=== PATIENT | female | born 1955 | race Caucasian/White ===

== ENCOUNTER → 2017-04-02 | Outpatient (CLI) | payer OTHER ==
[~2017-04-02] MED LIST: MULT-506 PO
[2017-04-16 18:05] LABS: HPV 16 RNA NOT DETECTED (NOT DETECTED); HPV 18 45 RNA NOT DETECTED (NOT DETECTED)
== END | disposition home or self-care (01) ==
LOC: C.PAPS 10:19
PROVIDERS: ATTEND Physician Assistant
DX: Z01.419 Encounter for gynecological examination (general) (routine) without abnormal findings (principal)

== ENCOUNTER → 2018-03-09 | Outpatient (CLI) | payer OTHER ==
--- NOTE | 2018-03-10 15:05 | MAMMOGRAPHY REPORT ---
BILATERAL DIGITAL SCREENING MAMMOGRAM TOMOSYNTHESIS WITH CAD: 03/09/2018 CLINICAL HISTORY: Routine screening. Patient has no complaints. TECHNIQUE: Breast tomosynthesis in addition to standard 2D mammography was performed. Current study was also evaluated with a Computer Aided Detection (CAD) system. COMPARISON: Comparison is made to exams dated: 09/18/2016 mammogram, 03/24/2013 mammogram - [facility], 07/14/2009, and 04/23/2006 mammogram. BREAST COMPOSITION: There are scattered areas of fibroglandular density in both breasts. FINDINGS: The parenchymal pattern is unchanged. No developing mass, architectural distortion or clus ter of suspicious microcalcifications is seen in either breast. IMPRESSION: ACR BI-RADS CATEGORY 2: BENIGN There is no mammographic evidence of malignancy. A 1 year screening mammogram is recommended. The pa tient will receive written notification of the results. Approximately 10% of breast cancers are not detected with mammography. A negative mammographic report should not delay biopsy if a clinically suggestive mass is present. Maryanne Herrmann M.D. ay/:03/09/2018 17:02:38 Auto Service Advisor: Kera RICE(Víctor)(Violet)(BD), [facility] letter sent: Normal 1/2 BI-RADS Code: ACR BI-RADS Category 2: Benign
== END | disposition home or self-care (01) ==
LOC: C.MAMM 14:35
PROVIDERS: ATTEND Internal Medicine
DX: Z12.31 Encounter for screening mammogram for malignant neoplasm of breast (principal)

== ENCOUNTER → 2018-05-19 | Outpatient (CLI) | payer OTHER ==
--- NOTE | 2018-05-19 13:15 | DIAGNOSTIC IMAGING REPORT ---
L-SPINE MIN 4 VIEWS ROUTINE HISTORY: Pain M54.9 Back painIncluding flex/extend view COMPARISON: None. FINDINGS: There is no fracture. No evidence for positional subluxation. Considerable degenerative disc change L5-S1 with mild degenerative changes L4-L5. The posterior elements appear intact. IMPRESSION: 1. Considerable degenerative disc change L5-S1. 2. No evidence for subluxation with the patient in flexion or extension. The above report was generated using voice recognition software. It may contain grammatical, syntax or spelling errors. Electronically signed by: Rashard Jean M.D. 05/19/2018 1:13 PM Dictated Date/Time: 05/19/2018 1:12 PM
== END | disposition home or self-care (01) ==
LOC: C.RAD1850 12:43
PROVIDERS: ATTEND Internal Medicine
DX: M54.9 Dorsalgia, unspecified (principal)

== ENCOUNTER 2024-02-02 13:59 | Observation (INO) ==
[2024-02-02 14:43] LABS: Basophils # (auto) 0.02 K/uL (0.00-0.20); Basophils % (auto) 0.3 %; Eosinophils # (auto) 0.04 K/uL (0.00-0.50); Eosinophils % (auto) 0.6 %; Hematocrit (blood only) 45.7 % (37.0-47.0); Hemoglobin 15.5 g/dl (12.0-16.0); Immature Granulocytes # (auto) 0.03 K/uL (0.01-0.20); Immature Granulocytes % (auto) 0.5 %; Lymphocytes # (auto) 2.17 K/uL (1.20-3.40); Lymphocytes % (auto) 34.6 %; Mean Corpuscular Hemoglobin 29.1 pg (25.0-34.0); Mean Corpuscular Hgb Conc 33.9 g/dL (32.0-36.0); Mean Corpuscular Volume 85.7 fL (80.0-100.0); Mean Platelet Volume 9.6 fL (9.4-12.4); Monocytes # (auto) 0.44 K/uL (0.11-0.59); Neutrophils # (auto) 3.58 K/uL (1.40-6.50); Platelet Count 224 K/uL (130-400); RDW Coefficient of Variation 12.7 % (11.5-14.5); RDW Standard Deviation 39.8 fL (36.4-46.3); Red Blood Count 5.33 M/uL (4.20-5.40); White Blood Count 6.28 K/ul (4.8-10.8)
--- NOTE | 2024-02-02 14:48 | XRay Report ---
XR chest 1V not portable CLINICAL HISTORY: Chest pain, nonspecific TECHNIQUE: Single frontal radiograph of the chest was obtained. Comparison: Comparison is made to chest radiograph 08/24/2013 FINDINGS: No lines and tubes are seen. The cardiomediastinal silhouette is normal. The lungs are clear. No evid ence of pleural effusion or pneumothorax. IMPRESSION: No acute chest disease. ACT 112: Negative or not required by law. Electronically signed by: Manan Lancaster M.D. 02/02/2024 2:46 PM
[2024-02-02 15:04] LABS: Albumin Globulin Ratio 1.8 (0.9-2); Albumin Level 4.7 gm/dl (3.4-5.0); BUN Creatinine Ratio 16.5 (10-20); Bilirubin,Total 0.5 mg/dl (0.2-1.0); Calcium 9.7 mg/dl (8.6-10.3); Creatinine Clr Calc Pharmacy 63.2 ml/min; Est GFR (African American) 88.5 ml/min; Est GFR (Non-African American) 76.4 ml/min; Globulin 2.6 gm/dl (2.5-4.0); Potassium 3.5 mmol/L (3.5-5.1); Total Protein 7.3 gm/dl (6.0-8.3)
[2024-02-02 15:10] LABS: Partial Thromboplastin Time 27 Seconds (21-31); Prothrombin Time 11.4 Seconds (9.0-12.0)
--- NOTE | 2024-02-02 15:43 | Emergency Department Note ---
Impression & Plan Atypical chest pain ED Provider Note NAME: SPENSER BLUM AGE: 68 SEX: F : 1955 ARRIVES VIA: Walk-In INFORMANT: Patient, ED PROVIDER(S): Terrell Valladares MD CHIEF COMPLAINT: Too much vitamin A, dry skin, dehydration, chest pain MEDICAL DECISION MAKING: Patient presents and is very concerned about her vitamin a but reason for presenting to the emergency department was for chest pain. IV was established and blood work was obtained. Patient's EKG may show subtle changes in the lateral inferior leads. Patient was ordered for full dose aspirin. Blood work shows a normal white count H&H and platelet count. The patient's kidney function is unremarkable. Patient's troponin is not elevated. Urinalysis without evidence of obvious blood or infection. Patient's chest x-ray is negative. Patient was ordered IV fluids. Given the patient's exertional chest pain that was brief in duration with EKG changes I did suggest that the patient be admitted. Patient is comfortable with current plan of care. I did speak with the on-call hospitalist Dr. Huynh and the patient was admitted to the medicine service. Discussion w/ other healthcare providers: Dr. Huynh inpatient medicine service Prior /Outside records reviewed: None Differential diagnosis: Cardiac ischemia, aortic dissection, pulmonary embolism, pneumothorax, pneumonia, pericarditis, myocarditis, GERD, cholecystitis, pancreatitis, musculoskeletal, as well as other pathologies were considered. Diagnostics, as interpreted by me: ECG: Normal sinus rhythm, rate of 69, normal intervals, normal axis slight depressions noted inferiorly and laterally. He does appear changed from comparison EKG July 16, 2022. Cardiac monitoring: An order was placed for continuous cardiac monitoring. The monitor shows a rate of 75 with sinus rhythm. Patient was placed on pulse oximetry Medical decision rules: Heart score Imaging studies: I informally interpreted the patient's chest x-ray does not show obvious pneumonia or pneumothorax with formal report to follow. HPI: Patient presents due to concern for vitamin a overconsumption as well as chest pain. The patient does mention that she wanted to avoid any difficulties with her vision and thus was eating a lot of supplements as well as foods rich in vitamin A. The patient believes that her skin is getting dry and she feels like she has a "reptile." Patient did present to the emergency department today because of this but in addition to the fact that she developed chest pain today. The patient states that she was pushing her push mower and developed centralized chest pressure. This lasted approximate 5 minutes and resolved with stopping. Patient denies any prior history of heart or lung disease. No leg swelling or calf pain. Patient states that she felt like her blood pressure might be elevated. Patient was noted to be elevated when she presented. The patient denies any increase in salt or processed foods in the diet. Patient denies any alcohol tobacco or drug use. No family history of heart attack or stroke in parents or siblings before the age of 65. PAST MEDICAL HISTORY: See Below PAST SURGICAL HISTORY: See Below SOCIAL HISTORY: See Below HOME MEDICATIONS: See Below ALLERGIES: See Below VITALS: See Below PHYSICAL EXAMINATION: GENERAL: NAD, non-toxic. Wearing glasses. EYE EXAM: Normal conjunctiva. PERRL, no anisocoria and EOM's grossly intact w/o pain. OROPHARYNX: Moist mucus membranes, grossly normal dentition. NECK: Trachea midline, no stridor. LUNGS: Clear to auscultation. Normal chest wall mechanics. HEART: NSR, no MRG. ABDOMEN: Abdomen soft, non-tender, no masses, no rebound or guarding. BACK: No CVA TTP. SKIN: No rashes and no bruising. UPPER EXTREMITIES: Upper extremities are grossly normal. LOWER EXTREMITIES: Grossly normal, no edema. Negative Homans' sign bilaterally. NEURO EXAM: A&O x3, cranial nerves II-XII grossly intact, normal speech, moves all 4 extremities. Past Med/Surg History Medical History HSIL (high grade squamous intraepithelial lesion) on Pap smear of cervix resolved Disc degeneration, lumbosacral History of diverticulitis of colon Osteopenia Surgical History History of cataract surgery bilat S/P LEEP Hx of colonoscopy History of tubal ligation History of rhinoplasty History of wisdom tooth extraction S/P tonsillectomy Family History Mother Myocardial infarction Breast cancer, Onset Age: 55 still alive in her 90s Dyslipidemia Skin cancer Grandmother (Paternal) Diabetes Brother Hypothyroidism Prostate cancer Father Hypothyroidism Pacemaker Prostate cancer Daughter Hypothyroidism Denies family history of Ovarian cancer Colorectal cancer Social History Smoking Status: Never smoker Age Started Using Tobacco: 17; Age Quit Using Tobacco: 53; Second Hand Exposure: No; Do You Dip or Chew Tobacco: No; Hx Alcohol Use: Yes Alcohol type: wine Hx Substance Use: Yes Prescribed Medications: Marijuana Non-Prescribed Medications: Marijuana Substance Use Type Other:: medical card Preferred Language: Mongolian Communication Ability: Effective Visual Impairment: Partially Limited Hearing Ability: Normal General Ii Farmworker Required: No Beliefs That Will Affect Care: None marital status: Current Living Situation: Spouse Current Living Situation Comment: daughter current occupational status: employed current occupation: self employeed How many Children do You have: 1 How many Children do You have Comment: girl Feels Safe at Home: Yes Childhood Exposure to Second-Hand Smoke: No Diet: regular during the past year weight has: remained stable Dental Care, Regularly: Yes Physical Activity Frequency: 5-6 Times per Week Seatbelt Use: always Sunscreen Use: No Assistive Devices: Glasses Allergies Allergies Allergy/AdvReac Type Severity Reaction Status Date / Time Penicillins Allergy Severe Throat Verified 02/02/24 18:04 swelling Home Meds Home Medications Medication Instructions Recorded Confirmed multivitamin 1 tab PO QAM 02/10/20 02/02/24 Medical Marijuana 1 cap PO HS PRN Sleep 08/09/22 02/02/24 Mushrooms 1 dose PO QAM 08/09/22 02/02/24 cholecalciferol (vitamin D3) 100 100 mcg PO QAM 08/09/22 02/02/24 mcg (4,000 unit) capsule vitamin B complex 1 tab PO QAM 08/09/22 02/02/24 vitamin E 200 unit tablet 45 mg PO DAILY 08/09/22 02/02/24 enzymes, proteolytic-rutin 50 mg 1 cap PO DAILY 07/07/23 02/02/24 capsule,delayed release (ProteoXyme) omega 2-fbt-bxb-fish oil 1,000 mg 1 cap PO DAILY 02/02/24 02/02/24 (120 mg-180 mg) capsule (Fish Oil) valacyclovir 1 gram tablet 1,000 mg PO Q12H PRN Outbreak 02/02/24 02/02/24 Results & Data (ED) Vital Signs Vital Signs - 24 hr 02/02/24 14:06 02/02/24 17:06 02/02/24 17:06 Temperature 36.6 C Temperature Source Temporal Artery Scan Pulse Rate 90 Pulse Rate [Apical] 66 Pulse Rhythm [Apical] Regular Pulse Strength [Apical] Normal Respiratory Rate 20 20 Respiratory Effort / Characteristics Non-Labored Non-Labored Spontaneous Respiratory Depth Normal Normal Respiratory Pattern Regular Blood Pressure 201/92 H Blood Pressure [Left Arm] 177/104 H Blood Pressure Mean 128 Blood Pressure Mean [Left Arm] 128 Pulse Oximetry 98 98 98 Oxygen Delivery Method Room Air Room Air Sepsis Recent Fever Within 48 Hours No Sepsis New/Unexplained Change in Mental Status No Sepsis Action Taken by Nursing No Action Required 02/02/24 17:39 Temperature Temperature Source Pulse Rate 62 Pulse Rate [Apical] Pulse Rhythm [Apical] Pulse Strength [Apical] Respiratory Rate Respiratory Effort / Characteristics Respiratory Depth Respiratory Pattern Blood Pressure Blood Pressure [Left Arm] Blood Pressure Mean Blood Pressure Mean [Left Arm] Pulse Oximetry Oxygen Delivery Method Sepsis Recent Fever Within 48 Hours Sepsis New/Unexplained Change in Mental Status Sepsis Action Taken by Half-Way Medications Current Medication List: was personally reviewed by ky Laboratory Data Attestation: I reviewed the patient's lab results. 02/02/24 14:10 02/02/24 14:10 Lab Results 02/02/24 02/02/24 Range/Units 14:09 14:10 WBC 6.28 (4.8-10.8) K/ul RBC 5.33 (4.20-5.40) M/uL Hgb 15.5 (12.0-16.0) g/dl Hct 45.7 (37.0-47.0) % MCV 85.7 (80.0-100.0) fL MCH 29.1 (25.0-34.0) pg MCHC 33.9 (32.0-36.0) g/dL RDW Std Deviation 39.8 (36.4-46.3) fL RDW Coeff of Jacquie 12.7 (11.5-14.5) % Plt Count 224 (130-400) K/uL MPV 9.6 (9.4-12.4) fL Immature Gran % (Auto) 0.5 % Neut % (Auto) 57.0 % Lymph % (Auto) 34.6 % Brooke % (Auto) 7.0 % Eos % (Auto) 0.6 % Baso % (Auto) 0.3 % Neut # (Auto) 3.58 (1.40-6.50) K/uL Lymph # (Auto) 2.17 (1.20-3.40) K/uL Brooke # (Auto) 0.44 (0.11-0.59) K/uL Eos # (Auto) 0.04 (0.00-0.50) K/uL Baso # (Auto) 0.02 (0.00-0.20) K/uL Immature Gran # (Auto) 0.03 (0.01-0.20) K/uL PT 11.4 (9.0-12.0) Seconds INR 1.0 (0.9-1.1) APTT 27 (21-31) Seconds PTT Ratio 1.0 Sodium 137 (136-145) mmol/L Potassium 3.5 (3.5-5.1) mmol/L Chloride 103 (98-107) mmol/L Carbon Dioxide 28 (21-32) mmol/L Anion Gap 6 (3-11) BUN 13 (6-23) mg/dl Creatinine 0.79 (0.6-1.2) mg/dl Est Cr Clr Drug Dosing 63.2 ml/min Est GFR ( Amer) 88.5 ml/min Est GFR (Non-Af Amer) 76.4 ml/min BUN/Creatinine Ratio 16.5 (10-20) Glucose 101 H (70-99(Fasting)) mg/dl Calcium 9.7 (8.6-10.3) mg/dl Total Bilirubin 0.5 (0.2-1.0) mg/dl AST 22 (13-39) U/L ALT 23 (7-52) U/L Alkaline Phosphatase 62 (34-104) U/L Troponin I High Sens 4.0 (0-14) pg/ml Total Protein 7.3 (6.0-8.3) gm/dl Albumin 4.7 (3.4-5.0) gm/dl Globulin 2.6 (2.5-4.0) gm/dl Albumin/Globulin Ratio 1.8 (0.9-2) Urine Color Yellow Urine Appearance Clear (Clear) Urine pH 6.5 (4.5-7.5) Ur Specific Allen 1.003 (1.000-1.030) Urine Protein Negative (Negative) Urine Glucose (UA) Negative (Negative) Urine Ketones Negative (Negative) Urine Blood Negative (Negative) Urine Nitrite Negative (Negative) Urine Bilirubin Negative (Negative) Urine Urobilinogen Negative (Negative) Ur Leukocyte Esterase Trace H (Negative) Urine WBC (Auto) 0-5 (0-5) /hpf Urine RBC (Auto) 0-2 (0-2) /hpf U Hyaline Cast (Auto) 0-2 (0-2) /lpf U Epithel Cells (Auto) 0-2 (0-2) /hpf Urine Bacteria (Auto) None Seen (None Seen) Administered Medications Discontinued Medications Aspirin (Aspirin Chew 324 Mg) 324 mg PO NOW STA Stop: 02/02/24 17:15 Last Admin: 02/02/24 17:21 Dose: 324 mg Documented By: GERMAN Sodium Chloride (Nss) 1,000 mls @ 999 mls/hr IV .Q1H1M ONE Stop: 02/02/24 18:14 Last Infusion: 02/02/24 18:31 Dose: Infused Documented By: Admin: 02/02/24 17:20 Dose: 999 mls/hr Documented By: GERMAN Imaging Data Radiologist's Impression: Chest X-Ray 02/02/24 14:09 XR chest 1V not portable CLINICAL HISTORY: Chest pain, nonspecific TECHNIQUE: Single frontal radiograph of the chest was obtained. Comparison: Comparison is made to chest radiograph 08/24/2013 FINDINGS: No lines and tubes are seen. The cardiomediastinal silhouette is normal. The lungs are clear. No evidence of pleural effusion or pneumothorax. IMPRESSION: No acute chest disease. ACT 112: Negative or not required by law. Electronically signed by: Manan Lancaster M.D. 02/02/2024 2:46 PM Discharge Plan Visit Data Chief Complaint: Cardiac Assessment Stated Complaint: SEVERE DRYNESS,HEADACHE,PRESSURE IN CHEST ED Provider: Terrlel Valladares Discharge Problem: Atypical chest pain Discharge Instructions Interventions: ED Discharge Assessment Last Done: 02/02/24 19:41
[2024-02-02] MEDS: SODIUM CHLORIDE 0.9% 1,000 ML IV ONE (17:20)
[2024-02-02] MEDS: ASPIRIN CHEW 324 MG PO STA (17:21)
[2024-02-02 17:34] LABS: Appearance Urine Clear (Clear); Bacteria Urine Automated None Seen (None Seen); Bilirubin Urine Negative (Negative); Blood Urine Negative (Negative); Cast Urine Automated 0-2 /lpf (0-2); Color Urine Yellow; Epithelial Cell Urine Auto 0-2 /hpf (0-2); Glucose Urine UA Negative (Negative); Ketones Urine Negative (Negative); Leukocyte Esterase Urine Trace (Negative); Nitrite Urine Negative (Negative); Protein Urine Negative (Negative); RBC Urine Automated 0-2 /hpf (0-2); Specific Gravity Urine 1.003 (1.000-1.030); Urobilinogen Urine Negative (Negative); WBC Urine Automated 0-5 /hpf (0-5); pH Urine 6.5 (4.5-7.5)
--- NOTE | 2024-02-02 18:31 | History & Physical Report ---
Date of Service February 02, 2024 Assessment & Plan (1) Chest pain, rule out acute myocardial infarction: Plan: Exertional chest pain and likely not long enough to cause troponins elevation with mild EKG changes and HTN therefore: Serial troponins overnight Stress echocardiogram - if normal suspect symptoms from high stress and anxiety NPO after midnight HTN likely due to stress/anxiety and would avoid acutely treating this unless consistently sBP > 200 (2) Vitamin A overdose: Plan: Her symptoms appear to be more anxiety related given she relates sudden onset of symptoms including dry skin to eating cheese/eggs/milk. Acute toxicity can really only occur with high doses of supplementation with symptoms of nausea, vomiting, vertigo and blurring of vision. Given she is taking vitamin A supplements I think it is reasonable to take a vitamin A level as high levels of vitamin A chronically can cause non-specific symptoms such as what she is describing although it is a send out test and she should follow up with her PCP for this. Plan VTE Prophylaxis - low risk Diet - heart healthy Disposition - observation to med/tele Admission and Anticipated Discharge Date Admission Date: February 02, 2024 History of Present Illness Chief Complaint: Chest pain Concern for vitamin A overdose Primary Care Provider: Atilio Philippe MD Ladan Alcala is a 68 year old female who presents to the ER with chest pain and concern for vitamin A overdose. Her chest pain occurred around 11:30am today while pushing the scaleman and lasted for 5 minutes, relieved with rest. Unable to give severity as it was more like a tightness. No radiation. No associated diaphoresis, shortness of breath, dizziness. Never had similar chest pains previously. This week she has felt multiple symptoms which she relates to taking too much vitamin A. She reports every time she has foods high in vitamin A and supplements her skin suddenly dries up and lacks skin turgor. She has stopped using skin cream as that has vitamin A in it. She is having chills at night. Slight headache. 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 Sukhdeep hands and feet intermittently. Yesterday she thought she saw one pupil was smaller than the other in a mirror. She feels better in the morning but worse throughout the day as she eats things with vitamin A in them. She was taking vitamin A supplements to help with her eyes but for the last week as she feels her symptoms are due to this she has tried to stop everything with vitamin A in it. She continues to feels she is very dehydrated in the ER. Allergies Allergy/AdvReac Type Severity Reaction Status Date / Time Penicillins Allergy Severe Throat Verified 02/02/24 18:04 swelling Home Medications Medication Instructions Recorded Confirmed Type multivitamin 1 tab PO QAM 02/10/20 02/02/24 History Medical Marijuana 1 cap PO HS PRN Sleep 08/09/22 02/02/24 History Mushrooms 1 dose PO QAM 08/09/22 02/02/24 History cholecalciferol (vitamin D3) 100 100 mcg PO QAM 08/09/22 02/02/24 History mcg (4,000 unit) capsule vitamin B complex 1 tab PO QAM 08/09/22 02/02/24 History vitamin E 200 unit tablet 45 mg PO DAILY 08/09/22 02/02/24 History enzymes, proteolytic-rutin 50 mg 1 cap PO DAILY 07/07/23 02/02/24 History capsule,delayed release (ProteoXyme) omega 4-atv-ivy-fish oil 1,000 mg 1 cap PO DAILY 02/02/24 02/02/24 History (120 mg-180 mg) capsule (Fish Oil) valacyclovir 1 gram tablet 1,000 mg PO Q12H PRN Outbreak 02/02/24 02/02/24 History Past Med/Surg History Medical History HSIL (high grade squamous intraepithelial lesion) on Pap smear of cervix resolved Disc degeneration, lumbosacral History of diverticulitis of colon Osteopenia Surgical History History of cataract surgery bilat S/P LEEP Hx of colonoscopy History of tubal ligation History of rhinoplasty History of wisdom tooth extraction S/P tonsillectomy Family History Mother Myocardial infarction Breast cancer, Onset Age: 55 still alive in her 90s Dyslipidemia Skin cancer Grandmother (Paternal) Diabetes Brother Hypothyroidism Prostate cancer Father Hypothyroidism Pacemaker Prostate cancer Daughter Hypothyroidism Denies family history of Ovarian cancer Colorectal cancer Social History Smoking Status: Never smoker Age Started Using Tobacco: 17; Age Quit Using Tobacco: 53; Second Hand Exposure: No; Do You Dip or Chew Tobacco: No; Hx Alcohol Use: No Hx Substance Use: Yes Prescribed Medications: Marijuana Non-Prescribed Medications: Marijuana Substance Use Type Other:: medical card Preferred Language: Turkmen Communication Ability: Effective Visual Impairment: Partially Limited Hearing Ability: Normal 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 Beliefs That Will Affect Care: Gnosticism Gnosticism Beliefs: no vaccines marital status: Current Living Situation: Family Current Living Situation Comment: daughter current occupational status: employed current occupation: self employeed How many Children do You have: 1 How many Children do You have Comment: girl Feels Safe at Home: Yes Safety Concerns: Feels Safe At This Time Childhood Exposure to Second-Hand Smoke: No Diet: regular during the past year weight has: remained stable Dental Care, Regularly: Yes Physical Activity Frequency: 5-6 Times per Week Seatbelt Use: always Sunscreen Use: No Assistive Devices: Glasses Review of Systems Review of Systems: All systems reviewed & are unremarkable except as noted in HPI & below Physical Exam Constitutional: WD/WN, vitals as above Eyes: PERRL, conjunctivae normal, anicteric sclerae ENMT: external ear and nose normal, oropharynx normal Respiratory: normal respiratory effort, lungs clear to auscultation Cardiovascular: RRR, no murmur, no edema Gastrointestinal (Abdomen): normal bowel sounds, soft, nontender, no hepatosplenomegaly Skin: no rashes, warm and dry normal turgor Neurologic: moves all extremities and awake; not confused Psychiatric: A+Ox3, euthymic affect Results & Data Results & Data Vital Signs (Past 12 Hours) Vital Signs Temp Pulse Pulse Resp BP BP Pulse Ox 02/02/24 17:39 62 02/02/24 17:06 66 20 177/104 H 98 02/02/24 17:06 98 02/02/24 14:06 36.6 C 90 20 201/92 H 98 O2 Del Method 02/02/24 17:39 02/02/24 17:06 02/02/24 17:06 Room Air 02/02/24 14:06 Room Air Laboratory Results Abnormal lab results 02/02/24 02/02/24 Range/Units 14:09 14:10 Potassium (3.5-5.1) mmol/L Chloride (98-107) mmol/L Glucose 101 H (70-99(Fasting)) mg/dl Calcium (8.6-10.3) mg/dl Ur Leukocyte Esterase Trace H (Negative) Diagnostic Findings XR chest 1V not portable CLINICAL HISTORY: Chest pain, nonspecific TECHNIQUE: Single frontal radiograph of the chest was obtained. Comparison: Comparison is made to chest radiograph 08/24/2013 FINDINGS: No lines and tubes are seen. The cardiomediastinal silhouette is normal. The lungs are clear. No evidence of pleural effusion or pneumothorax. IMPRESSION: No acute chest disease. Medications Administered ER Medications Given: Aspirin 324mg PO Normal saline ECG Rate (beats per minute): 69 Rhythm: normal sinus Findings: + T-wave inversion (Inferior) Comparison ECG Date: from (July 16, 2022) Change: the following changes noted (TWI are new) Code Status & VTE Plan Code Status Full PG Care Time/CCT Total # of Minutes Spent Total Time Spent with Patient: Total time spent is greater than 50% in coordination of care (as documented) at patient's floor/unit and/or counseling patient: Coding Level of Care Code 09828 INT INP/OBS CARE 2/55MIN Diagnoses Chest pain, rule out acute myocardial infarction R07.9 Vitamin A overdose T45.2X1A
[2024-02-02 20:06] LABS: Magnesium 2.1 mg/dl (1.7-2.4)
[2024-02-02 20:11] LABS: Troponin I High Sensitivity 7.1 pg/ml (0-14)
[2024-02-03 01:38] LABS: Basophils # (auto) 0.04 K/uL (0.00-0.20); Basophils % (auto) 0.7 %; Eosinophils % (auto) 1.8 %; Hematocrit (blood only) 39.1 % (37.0-47.0); Hemoglobin 13.4 g/dl (12.0-16.0); Immature Granulocytes # (auto) 0.01 K/uL (0.01-0.20); Immature Granulocytes % (auto) 0.2 %; Lymphocytes # (auto) 2.39 K/uL (1.20-3.40); Lymphocytes % (auto) 41.9 %; Mean Corpuscular Hemoglobin 29.7 pg (25.0-34.0); Mean Corpuscular Hgb Conc 34.3 g/dL (32.0-36.0); Mean Corpuscular Volume 86.7 fL (80.0-100.0); Mean Platelet Volume 9.6 fL (9.4-12.4); Monocytes # (auto) 0.49 K/uL (0.11-0.59); Monocytes % (auto) 8.6 %; Neutrophils # (auto) 2.67 K/uL (1.40-6.50); Neutrophils % (auto) 46.8 %; Platelet Count 184 K/uL (130-400); RDW Coefficient of Variation 12.8 % (11.5-14.5); RDW Standard Deviation 40.3 fL (36.4-46.3); Red Blood Count 4.51 M/uL (4.20-5.40)
[2024-02-03 01:49] LABS: BUN Creatinine Ratio 16.2 (10-20); Calcium 8.4 mg/dl (8.6-10.3); Creatinine Clr Calc Pharmacy 64.6 ml/min; Est GFR (African American) 103.4 ml/min; Est GFR (Non-African American) 89.2 ml/min; Potassium 3.4 mmol/L (3.5-5.1)
[2024-02-03] MEDS: CHOLECALCIFEROL 25 MCG (1000 UNITS) TAB PO SCH (08:02)
--- NOTE | 2024-02-03 12:48 | Discharge Summary ---
Date of Service February 03, 2024 Admission HPI Per Admitting Provider Ladan Alcala is a 68 year old female who presents to the ER with chest pain and concern for vitamin A overdose. 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 Unable to give severity as it was more like a tightness. No radiation. No associated diaphoresis, shortness of breath, dizziness. Never had similar chest pains previously. This week she has felt multiple symptoms which she relates to taking too much vitamin A. She reports every time she has foods high in vitamin A and supplements her skin suddenly dries up and lacks skin turgor. She has stopped using skin cream as that has vitamin A in it. She is having chills at night. Slight headache. 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 Sukhdeep hands and feet intermittently. Yesterday she thought she saw one pupil was smaller than the other in a mirror. She feels better in the morning but worse throughout the day as she eats things with vitamin A in them. She was taking vitamin A supplements to help with her eyes but for the last week as she feels her symptoms are due to this she has tried to stop everything with vitamin A in it. She continues to feels she is very dehydrated in the ER. Principal Diagnosis chest pain Discharge Data Allergies Allergy/AdvReac Type Severity Reaction Status Date / Time Penicillins Allergy Severe Throat Verified 02/02/24 18:04 swelling Consultations 02/02/24 17:59 ED Decision to Admit Stat Hospital Course (1) Chest pain, rule out acute myocardial infarction: Exertional chest pain and likely not long enough to cause troponins elevation with mild EKG changes and HTN therefore: Serial troponins overnight Stress echocardiogram - if normal suspect symptoms from high stress and anxiety NPO after midnight HTN likely due to stress/anxiety and would avoid acutely treating this unless consistently sBP > 200 stress test is negative , denies chest pain stable for discharge (2) Vitamin A overdose: Her symptoms appear to be more anxiety related given she relates sudden onset of symptoms including dry skin to eating cheese/eggs/milk. Acute toxicity can really only occur with high doses of supplementation with symptoms of nausea, vomiting, vertigo and blurring of vision. Given she is taking vitamin A supplements I think it is reasonable to take a vitamin A level as high levels of vitamin A chronically can cause non-specific symptoms such as what she is describing although it is a send out test and she should follow up with her PCP for this. Plan VTE Prophylaxis - low risk Diet - heart healthy Disposition - observation to med/tele Total Time Total Time Spent Total Time Spent (In Minutes): 35 Discharge Plan Discharge Items Patient Disposition: Home - Self-Care Reason For Visit: CHEST PAIN RULE OUT [place] Discharge Diagnosis: chest pain Activity: Resume your previous activity Non-emergency contact: Primary Care Provider Call non-emergency contact if: your symptoms worsen Follow-up/Referrals: Atilio Philippe MD [Primary Care Provider] - Diet: Regular Addtl Attending Provider Instructions: follow up with PCP Pending Studies at Discharge: No Stand-Alone Forms: My [employer], Smoking Cessation Medications and DC Order Prescriptions: Continued multivitamin Tablet 1 tab PO QAM Medical Marijuana 1 cap PO HS PRN (Reason: Sleep) vitamin B complex Tablet Extended Release 1 tab PO QAM vitamin E 200 unit Tablet 45 mg PO DAILY cholecalciferol (vitamin D3) 100 mcg (4,000 unit) Capsule 100 mcg PO QAM Mushrooms 1 dose PO QAM Patient Comments: tea ProteoXyme 50 mg Capsule,Delayed Release(Dr/Ec) 1 cap PO DAILY omega 4-dfc-asv-fish oil [Fish Oil] 1,000 mg (120 mg-180 mg) Capsule 1 cap PO DAILY valacyclovir 1 gram tablet 1,000 mg PO Q12H PRN (Reason: Outbreak) Rx Instructions: Take 1000mg by mouth for initial dose; then repeat in 12 hours. Discharge Orders: Discharge Order (Routine); Ordered 02/03/24 Ordered By: Silvia Waldron Admission Data Admit Date/Time: 02/02/24 18:53 Attending Provider: Silvia Waldron Admit Provider: Jim Huynh Primary Care Provider: Atilio Philippe Other Providers: Jim Huynh Coding Level of Care Code 93771 INP/OBS DISCH >30 MIN Diagnoses Chest pain, rule out acute myocardial infarction R07.9 Vitamin A overdose T45.2X1A
--- NOTE | 2024-02-03 18:08 | XCELERA ---
[id number]
--- NOTE | 2024-02-05 05:57 | Electrocardiogram Report ---
Test Reason : Blood Pressure : / mmHG Vent. Rate : 069 BPM Atrial Rate : 069 BPM P-R Int : 134 ms QRS Dur : 072 ms QT Int : 400 ms P-R-T Axes : 072 -08 -06 degrees QTc Int : 428 ms Normal sinus rhythm Nonspecific ST abnormality Abnormal ECG When compared with ECG of 16-JUL-2022 09:37, Nonspecific ST abnormality is now Present Confirmed by Jose Aguilar ([id number]) on 02/05/2024 5:57:39 AM Referred By: Confirmed By:Jose Aguilar
== END 2024-02-03 13:07 | disposition home or self-care (01) ==
LOC: EDINP 13:59 → ED 13:59 → SUATTDRO 18:53 → 2W 19:41